=== PATIENT | male | born 1965 | race Caucasian/White ===

== ENCOUNTER 2016-12-24 22:08 | Emergency (ER) | payer MEDICAID ==
[2016-12-24 23:13] LABS: ABSOLUTE BASOPHILS # (AUTO) 0.1 10^3/uL (0.0-0.2); ABSOLUTE EOSINOPHILS # (AUTO) 0.4 10^3/uL (0.0-0.6); ABSOLUTE LYMPHOCYTES (AUTO) 2.7 10^3/uL (0.5-4.7); ABSOLUTE MONOCYTES (AUTO) 0.9 10^3/uL (0.1-1.4); ABSOLUTE NEUT (AUTO) 6.3 10^3/uL (1.7-8.2); BASOPHILS % (AUTO) 0.7 % (0-2); EOSINOPHILS % (AUTO) 3.8 % (0-6); HEMATOCRIT 41.9 % (37.9-51.0); HEMOGLOBIN 14.7 g/dL (13.5-17.0); HGB HCT DIFFERENCE 2.2; LYMPHOCYTES % (AUTO) 26.1 % (13-45); MEAN CORPUSCULAR HEMOGLOBIN 33.7 pg (27.0-33.4); MEAN CORPUSCULAR VOLUME 96 fl (80-97); MONOCYTES % (AUTO) 8.9 % (3-13); RED BLOOD COUNT 4.36 10^6/uL (4.35-5.55); RED CELL DISTRIBUTION WIDTH 13.1 % (11.5-14.0); SEGMENTED NEUTROPHILS % (AUTO) 60.5 % (42-78); WHITE BLOOD COUNT 10.4 10^3/uL (4.0-10.5)
[2016-12-24 23:22] LABS: APPEARANCE,URINE CLEAR; BILIRUBIN,URINE NEGATIVE (NEGATIVE); GLUCOSE, URINE NEGATIVE (NEGATIVE); KETONES,URINE NEGATIVE (NEGATIVE); LEUKOCYTE ESTERASE,URINE NEGATIVE (NEGATIVE); NITRITE,URINE NEGATIVE (NEGATIVE); PROTEIN,URINE NEGATIVE (NEGATIVE); URINE SPECIFIC GRAVITY 1.005; UROBILINOGEN,URINE NEGATIVE mg/dL (<2.0)
[2016-12-24 23:28] LABS: ALANINE AMINOTRANSFERASE 32 U/L (21-72); ALBUMIN 4.2 g/dL (3.5-5.0); ALKALINE PHOSPHATASE 65 U/L (38-126); ANION GAP 16 (5-19); ASPARTATE AMINO TRANSFERASE 26 U/L (17-59); BILIRUBIN,DIRECT 0.3 mg/dL (0.0-0.4); BILIRUBIN,TOTAL 0.3 mg/dL (0.2-1.3); BLOOD UREA NITROGEN 14 mg/dL (7-20); CALCIUM 9.3 mg/dL (8.4-10.2); CARBON DIOXIDE 19 mmol/L (22-30); CHLORIDE 105 mmol/L (98-107); CREATININE RESULT 0.84 mg/dL (0.52-1.25); GLUCOSE 88 mg/dL (75-110); POTASSIUM 4.8 mmol/L (3.6-5.0); SODIUM 139.9 mmol/L (137-145)
[2016-12-25] MEDS ORDERED: HYDROMORPHONE HCL INJ/PF 2 MG/ML AMPULE IV ONE (00:16)
--- NOTE | 2016-12-25 00:16 | ER Document Report ---
ED General - General Chief Complaint: Back Pain Stated Complaint: BACK PAIN Time Seen by Provider: 12/25/16 00:02 Mode of Arrival: Medic Information source: Patient Notes: A 51-year-old male with a history of hypertension who presents with sudden onset of sharp carrying back pain between his shoulder blades that occurred about 3 hours ago at rest. He denies any prior history of similar back pain. He states pain is made worse with deep breathing. No fevers or chills. TRAVEL OUTSIDE OF THE [place] IN LAST 30 DAYS: No - Related Data Allergies/Adverse Reactions: Coconut * [Coconut] Allergy (Verified 05/13/14 10:15) morphine Allergy (Verified 05/09/16 16:08) Past Medical History - Social History Smoking Status: Current Every Day Smoker Chew tobacco use (# tins/day): No Frequency of alcohol use: Social Drug Abuse: None Family History: Reviewed & Not Pertinent Patient has suicidal ideation: No Patient has homicidal ideation: No - Past Medical History Cardiac Medical History: Reports: Hx Hypertension - managed with 3medications Renal/ Medical History: Denies: Hx Peritoneal Dialysis Traumatic Medical History: Reports: Hx Fractures Past Surgical History: Reports: Hx Orthopedic Surgery - leg fx with plate placed , carpal tunnel surgery - Immunizations Hx Diphtheria, Pertussis, Tetanus Vaccination: Yes Review of Systems - Review of Systems Constitutional: No symptoms reported. denies: Chills, Fever EENT: No symptoms reported Cardiovascular: No symptoms reported. denies: Chest pain, Syncope Respiratory: See HPI Gastrointestinal: No symptoms reported Genitourinary: No symptoms reported Musculoskeletal: See HPI, Back pain Skin: No symptoms reported Hematologic/Lymphatic: No symptoms reported Neurological/Psychological: No symptoms reported Physical Exam - Vital signs Vitals: Temp Pulse Resp BP Pulse Ox 98.2 F 69 16 136/86 H 96 12/24/16 22:17 12/24/16 22:17 12/24/16 22:17 12/24/16 22:17 12/24/16 22:17 - Notes Notes: PHYSICAL EXAMINATION: GENERAL: Well-appearing, well-nourished and in mild distress secondary to pain HEAD: Atraumatic, normocephalic. EYES: Pupils equal round and reactive to light, extraocular movements intact, sclera anicteric, conjunctiva are normal. ENT: nares patent, oropharynx clear without exudates. Moist mucous membranes. NECK: Normal range of motion, supple without lymphadenopathy LUNGS: Breath sounds clear to auscultation bilaterally and equal. No wheezes rales or rhonchi. HEART: Regular rate and rhythm without murmurs ABDOMEN: Soft, nontender, normoactive bowel sounds. No guarding, no rebound. No masses appreciated. EXTREMITIES: Normal range of motion, no pitting or edema. NEUROLOGICAL: Cranial nerves grossly intact. No gross focal motor or sensory deficits appreciated PSYCH: Normal mood, normal affect. SKIN: Warm, Dry, normal turgor, no rashes or lesions noted. Course - Vital Signs Vital signs: Temp Pulse Resp BP Pulse Ox 98.2 F 69 14 140/80 H 96 12/24/16 22:17 12/24/16 22:17 12/25/16 03:01 12/25/16 03:01 12/25/16 03:01 - Laboratory Result Diagrams: 12/24/16 23:03 12/24/16 23:03 Laboratory results interpreted by me: 12/24/16 12/24/16 23:03 23:03 MCH 33.7 H Carbon Dioxide 19 L 12/25/16 03:33 troponin negative x2 - Diagnostic Test Radiology reviewed: Reports reviewed - CTA: no dissection, no PE. Spiculated lesion RML concerning for malignancy. Sclerotic lesion T6 - EKG Interpretation by Me Rate: Normal Rhythm: NSR Additional EKG results interpreted by me: 12/25/16 03:35 EKG at 00 21 demonstrates normal sinus rhythm with a rate of [address] segment elevation or depression Discharge - Discharge Clinical Impression: Mass of right lung Hypertension Qualifiers: Hypertension type: essential hypertension Qualified Code(s): I10 - Essential ( primary) hypertension Condition: Stable Disposition: HOME, SELF-CARE Additional Instructions: HIGH BLOOD PRESSURE REQUIRING TREATMENT: Your blood pressure is high. This is called "hypertension." If left untreated, high blood pressure greatly increases your risk of heart attack and stroke. Please don't ignore this problem. If you have blood pressure medicine but aren't using it regularly, start taking it again. Some simple things you can do to help are: Get some aerobic exercise for at least 20 minutes on a daily basis. (See your doctor before beginning any new exercise program.) Eat a low-fat diet. Lose excess weight. Avoid salty foods and avoid adding salt to any of the foods you eat. Avoid diet pills, decongestants, "energizing" herbs, and other medicines that elevate blood pressure. There are many different medicines that treat blood pressure. If your medication causes unpleasant side effects, call your doctor. There are others you can try. Treating hypertension is a life-long investment in your health. As discussed, your CT scan demonstrated a nodule in your right lung. This needs further evaluation and biopsy. Follow up with your PCP on Monday. You are encouraged to stop smoking FOLLOW-UP CARE: If you have been referred to a physician for follow-up care, call the physician s office for an appointment as you were instructed or within the next two days. If you experience worsening or a significant change in your symptoms, notify the physician immediately or return to the Emergency Department at any time for re-evaluation. Prescriptions: Hydrocodone/Acetaminophen [[place] 5-325 mg Tablet] 1 tab PO Q6H PRN #15 tablet PRN Reason: For Pain Forms: Smoking Cessation Education
--- NOTE | 2016-12-25 01:08 | RADIOLOGY REPORT (SQ) ---
EXAM DESCRIPTION: CHEST SINGLE VIEW COMPLETED DATE/TIME: 12/25/2016 12:33 am REASON FOR STUDY: severe upper back pain, pleuritic COMPARISON: None. EXAM PARAMETERS: NUMBER OF VIEWS: One view. TECHNIQUE: Single frontal radiographic view of the chest acquired. RADIATION DOSE: NA LIMITATIONS: None. FINDINGS: LUNGS AND PLEURA: Nodular ground-glass opacity at the right lung base. No pleural effusio n or pneumothorax. MEDIASTINUM AND HILAR STRUCTURES: No masses. Contour normal. HEART AND VASCULAR STRUCTURES: Heart normal in size. No overt vascular congestion. BONES: No acute findings. HARDWARE: None in the chest. IMPRESSION: Nodular ground-glass opacity at the right lung base. CT thorax recommended for further evaluation. TECHNICAL DOCUMENTATION: JOB ID: [id number]
[2016-12-25 01:21] LABS: ALCOHOL 128 mg/dL (NONE DETECTED); CREATINE KINASE 161 U/L (55-170)
[2016-12-25 01:32] LABS: PROTHROMBIN TIME 11.9 SEC (11.4-15.4)
[2016-12-25 01:40] LABS: CREATINE KINASE MB 1.48 ng/mL (<4.55)
[2016-12-25 01:41] LABS: TROPONIN I < 0.012 ng/mL
[2016-12-25 01:42] LABS: D-DIMER 0.32 ug/mL (0.00-0.50)
--- NOTE | 2016-12-25 02:27 | RADIOLOGY REPORT (SQ) ---
EXAM DESCRIPTION: CTA CHEST COMPLETED DATE/TIME: 12/25/2016 2:06 am REASON FOR STUDY: severe upper back pain, abnormal cxr COMPARISON: Chest x-ray 12/25/2016. TECHNIQUE: CT scan of the chest performed using helical scanning technique with dynamic intravenous contrast injection. Images reviewed with lung, soft tissue and bone windows. Reconstructed coronal and sagittal MPR images reviewed. Additional 3 dimensional post-processing performed to develop Maximal Intensity Projection images (NE P). All images stored on PACS. All CT scanners at this facility use dose modulation, iterative reconstruction, and/or weight based d osing when appropriate to reduce radiation dose to as low as reasonably achievable (ALARA). [facility]: Dose Right [facility]: CareDose [facility]: Dose Right [facility]: Teradose 4D [facility]: Blizuu CONTRAST TYPE AND DOSE: 100 mL Isovue 370- low osmolar. RENAL FUNCTION: Creatinine 0.84 RADIATION DOSE: 29.04 mGy. LIMITATIONS: None. FINDINGS: LUNGS AND PLEURA: 2.7 x 2.2 cm spiculated nodule in the right middle lobe extending to the pleura. Mild bibasilar atelectasis. No pleural effusion or pneumothorax. AORTA AND GREAT VESSELS: No thoracic aortic aneurysm or dissection. HEART: No pericardial effusion. PULMONARY ARTERIES: No emboli visualized in the main pulmonary arteries or the segmental branches. HILAR AND MEDIASTINAL STRUCTURES: No pathologically enlarged lymph nodes at the mediastinum or hilar regions. Mildly enlarged lymph nodes are seen at the bilateral axillary regions measuring up to 12 m m in short axis. HARDWARE: None in the chest. UPPER ABDOMEN: No significant findings. Limited exam. THYROID AND OTHER SOFT TISSUES: No masses. No adenopathy. BONES: Multilevel degenerative changes in the spine. 6 mm sclerotic area at the left side of T6 vert ebral body. 3D MIPS: Confirm above findings. IMPRESSION: No pulmonary emboli. Mild bibasilar atelectasis. Spiculated nodule in the right middle lobe extending to the pleura, worrisome for malignancy. Correl ation with PET/CT and tissue sampling recommended. Mild bilateral axillary adenopathy. This can be also better evaluated on PET/CT. 6 mm sclerotic lesion at the T6 vertebral body, indeterminate. TECHNICAL DOCUMENTATION: JOB ID: [id number] [place]- Quality ID # 436: Final reports with documentation of one or more dose reduction techniques (e.g., Au tomated exposure control, adjustment of the mA and/or kV according to patient size, use of iterative reconstruction technique) 2010 [employer]- All Rights Reserved
[2016-12-25 04:21] VITALS: BP 162/89
--- NOTE | 2016-12-25 09:21 | EKG REPORT ---
SEVERITY:- NORMAL ECG - SINUS RHYTHM : Confirmed by: David Hunter 25-Dec-2016 09:20:32
== END 2016-12-25 04:25 | disposition home or self-care (01) ==
LOC: ER 22:08
DX: R91.1 Solitary pulmonary nodule (principal); I10 Essential (primary) hypertension; M48.8X4 Other specified spondylopathies, thoracic region; M54.89 Other dorsalgia; F17.200 Nicotine dependence, unspecified, uncomplicated; Z91.018 Allergy to other foods; Z88.5 Allergy status to narcotic agent
CPT/HCPCS: 93005; 99284; 96374; 36415; 82553; 80307; 82550; 85025; 85610; 80053; 81001; 84484; 85379; 71010; 71275; 93010; J1170

== ENCOUNTER → 2017-02-03 | Outpatient (CLI) | payer MEDICAID ==
--- NOTE | 2017-02-03 10:37 | RADIOLOGY REPORT (SQ) ---
EXAM DESCRIPTION: CHEST SINGLE VIEW COMPLETED DATE/TIME: 02/03/2017 10:24 am REASON FOR STUDY: PNEUMOTHORAX COMPARISON: 12/25/2016 EXAM PARAMETERS: NUMBER OF VIEWS: One view. TECHNIQUE: Single frontal radiographic view of the chest acquired. RADIATION DOSE: NA LIMITATIONS: None. FINDINGS: LUNGS AND PLEURA: There is an approximately 20% pneumothorax on the right. There is a vani ewhat ill-defined opacity in the medial right base. No pleural effusion is present. MEDIASTINUM AND HILAR STRUCTURES: No masses. Contour normal. HEART AND VASCULAR STRUCTURES: Heart normal in size. Normal vasculature. BONES: No acute findings. HARDWARE: A pigtail catheter is present in the right hemithorax. OTHER: No other significant finding. IMPRESSION: 1. Right pneumothorax. 2. Right lower lobe pulmonary nodule. TECHNICAL DOCUMENTATION: JOB ID: [id number]
--- NOTE | 2017-02-03 11:47 | RADIOLOGY REPORT (SQ) ---
EXAM DESCRIPTION: CHEST SINGLE VIEW COMPLETED DATE/TIME: 02/03/2017 11:30 am REASON FOR STUDY: new heimlich valve placement COMPARISON: Earlier the same day. The regional film today was obtained at 1015 hours. The patient had the pneumothorax aspirated and a new Heimlich valve placed. A 2nd film was obtained which accord ing to the RA was obtained at 1030 hours. Time stamp on the film still says 1015 hours. EXAM PARAMETERS: NUMBER OF VIEWS: One view. TECHNIQUE: Single frontal radiographic view of the chest acquired. RADIATION DOSE: NA LIMITATIONS: None. FINDINGS: LUNGS AND PLEURA: Small right apical pneumothorax remains. This is significantly improved from the earlier film. MEDIASTINUM AND HILAR STRUCTURES: No masses. Contour normal. HEART AND VASCULAR STRUCTURES: Heart normal in size. Normal vasculature. BONES: No acute findings. HARDWARE: None in the chest. OTHER: No other significant finding. IMPRESSION: Persistent small right apical pneumothorax improved from the film obtained at 1015 hours . The current film was obtained at 1030 hours although the time stamp states 1015 hours. TECHNICAL DOCUMENTATION: JOB ID: [id number]
--- NOTE | 2017-02-03 12:12 | RADIOLOGY REPORT (SQ) ---
EXAM DESCRIPTION: CHEST SINGLE VIEW COMPLETED DATE/TIME: 02/03/2017 12:03 pm REASON FOR STUDY: POST NEW HEIMLICH VALVE PLACEMENT COMPARISON: Earlier the same day. EXAM PARAMETERS: NUMBER OF VIEWS: One view. TECHNIQUE: Single frontal radiographic view of the chest acquired. RADIATION DOSE: NA LIMITATIONS: None. FINDINGS: LUNGS AND PLEURA: Small right apical pneumothorax remains. MEDIASTINUM AND HILAR STRUCTURES: No masses. Contour normal. HEART AND VASCULAR STRUCTURES: Heart normal in size. Normal vasculature. BONES: No acute findings. HARDWARE: None in the chest. OTHER: No other significant finding. IMPRESSION: No interval change in the small right apical pneumothorax. TECHNICAL DOCUMENTATION: JOB ID: [id number]
== END ==
LOC: RAD 09:59
PROVIDERS: ATTEND Nuclear Medicine
DX: J93.9 Pneumothorax, unspecified (principal)
CPT/HCPCS: 71010

== ENCOUNTER → 2017-02-06 | Outpatient (CLI) | payer MEDICAID ==
--- NOTE | 2017-02-06 15:12 | RADIOLOGY REPORT (SQ) ---
EXAM DESCRIPTION: CHEST SINGLE VIEW COMPLETED DATE/TIME: 02/06/2017 2:58 pm REASON FOR STUDY: POST CHEST TUBE REMOVAL COMPARISON: Multiple chest films from 02/03/2017 EXAM PARAMETERS: NUMBER OF VIEWS: One view. TECHNIQUE: Single frontal radiographic view of the chest acquired. RADIATION DOSE: NA LIMITATIONS: None. FINDINGS: LUNGS AND PLEURA: The right-sided Heimlich valve and 5 [place] chest tube has been removed. No right pneumothorax. Right middle lobe nodule unchanged, along the anterior right 6th rib. No pleural effusions. No left pneumothorax. MEDIASTINUM AND HILAR STRUCTURES: No masses. Contour normal. HEART AND VASCULAR STRUCTURES: Heart normal in size. Normal vasculature. BONES: No acute findings. HARDWARE: None in the chest. OTHER: No other significant finding. IMPRESSION: No pneumothorax post right chest tube removal. Stable nodule medial right middle lobe, superimposed on the anterior 6th rib. TECHNICAL DOCUMENTATION: JOB ID: [id number]
--- NOTE | 2017-02-06 15:22 | RADIOLOGY REPORT (SQ) ---
EXAM DESCRIPTION: CHEST SINGLE VIEW COMPLETED DATE/TIME: 02/06/2017 2:46 pm REASON FOR STUDY: S/P PNEUMOTHORAX FOR REMOVAL OF CHEST TUBE COMPARISON: None. EXAM PARAMETERS: NUMBER OF VIEWS: One view. TECHNIQUE: Single frontal radiographic view of the chest acquired. RADIATION DOSE: NA LIMITATIONS: None. FINDINGS: LUNGS AND PLEURA: Previously described small right apical pneumothorax has resolved. No i nfiltrates. No effusions. MEDIASTINUM AND HILAR STRUCTURES: No masses. Contour normal. HEART AND VASCULAR STRUCTURES: Heart normal in size. Normal vasculature. BONES: No acute findings. HARDWARE: None in the chest. OTHER: No other significant finding. IMPRESSION: Previously described right apical pneumothorax has resolved. Lungs currently clear. Tu be remains unchanged in position TECHNICAL DOCUMENTATION: JOB ID: [id number]
== END ==
LOC: RAD 14:04
PROVIDERS: ATTEND Nuclear Medicine
DX: R91.1 Solitary pulmonary nodule (principal)
CPT/HCPCS: 71010

== ENCOUNTER → 2017-09-01 | Outpatient (CLI) | payer MEDICAID ==
--- NOTE | 2017-09-01 14:47 | RADIOLOGY REPORT (SQ) ---
EXAM DESCRIPTION: CT CHEST WITHOUT COMPLETED DATE/TIME: 09/01/2017 1:35 pm REASON FOR STUDY: PULMONARY INFILTRATE R91.8 OTHER NONSPECIFIC ABNORMAL FINDING OF LUNG FIELD COMPARISON: 12/25/2016 TECHNIQUE: CT scan performed of the chest without intravenous contrast. Images reviewed with lung, soft tissue and bone windows. Reconstructed coronal and sagittal MPR images reviewed. All images st ored on PACS. All CT scanners at this facility use dose modulation, iterative reconstruction, and/or weight based d osing when appropriate to reduce radiation dose to as low as reasonably achievable (ALARA). [facility]: Dose Right [facility]: CareDose [facility]: Dose Right [facility]: Teradose 4D [facility]: Smart Page2Images RADIATION DOSE: CT Rad equipment meets quality standard of care and radiation dose reduction techniq ues were employed. CTDIvol: 6.4 mGy. DLP: 261 mGy-cm. mGy. LIMITATIONS: No technical limitations. FINDINGS: LUNGS AND PLEURA: There has been interval right middle lobectomy since the previous exam. Post radiation changes are present in the subpleural right upper lobe anterior and laterally in its lower aspect. No pulmonary mass. No consolidation or pleural effusion. HILAR AND MEDIASTINAL STRUCTURES: No identified masses or abnormal nodes. No obvious aneurysm. HEART AND VASCULAR STRUCTURES: No aneurysm. No pericardial effusion. UPPER ABDOMEN: No significant findings. Limited exam. THYROID AND OTHER SOFT TISSUES: No masses. No adenopathy. BONES: No acute finding. HARDWARE: None in the chest. OTHER: Similar bilateral axillary lymph nodes. IMPRESSION: There has been interval right middle lobectomy since the previous exam. Post radiation changes are present in the subpleural right upper lobe anterior and laterally in its lower aspect. N o pulmonary mass. No consolidation or pleural effusion. TECHNICAL DOCUMENTATION: JOB ID: [id number] [place]-72 Quality ID # 436: Final reports with documentation of one or more dose reduction techniques (e.g., Au tomated exposure control, adjustment of the mA and/or kV according to patient size, use of iterative reconstruction technique) 2010 [employer]- All Rights Reserved
== END ==
LOC: RAD 13:00
PROVIDERS: ATTEND Internal Medicine Critical Care Medicine
DX: R91.8 Other nonspecific abnormal finding of lung field (principal)
CPT/HCPCS: 71250

== ENCOUNTER → 2018-03-08 | Outpatient (CLI) | payer MEDICAID ==
--- NOTE | 2018-03-08 16:02 | RADIOLOGY REPORT (SQ) ---
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 Images reviewed with lung, soft tissue and bone windows. Reconstructed coronal and sagittal MPR images reviewed. All images st ored on PACS. All CT scanners at this facility use dose modulation, iterative reconstruction, and/or weight based d osing when appropriate to reduce radiation dose to as low as reasonably achievable (ALARA). [facility]: Dose Right [facility]: CareDose [facility]: Dose Right [facility]: Teradose 4D [facility]: [place] RADIATION DOSE: CT Rad equipment meets quality standard of care and radiation dose reduction techniq ues were employed. CTDIvol: 6.8 mGy. DLP: 281 mGy-cm. mGy. LIMITATIONS: No technical limitations. FINDINGS: LUNGS AND PLEURA: Post old right thoracotomy, with lung stas post right middle lobectom y. There is bandlike scarring in the periphery of the upper lobe adjacent to the thoracotomy defect. No recurrent nodule is identified. No acute infiltrates. No pleural effusion. No pneumothorax. HILAR AND MEDIASTINAL STRUCTURES: No identified masses or abnormal nodes. No obvious aneurysm. HEART AND VASCULAR STRUCTURES: No aneurysm. No pericardial effusion. UPPER ABDOMEN: No significant findings. Limited exam. THYROID AND OTHER SOFT TISSUES: No masses. No adenopathy. BONES: Old right thoracotomy defect between the lateral 4th and 5th rays. Old right 4th and 6th late ral rib fractures HARDWARE: None in the chest. OTHER: No other significant findings. IMPRESSION: Post right middle lobectomy. No CT evidence of recurrent tumor TECHNICAL DOCUMENTATION: JOB ID: [id number] Quality ID # [id number]: Final reports with documentation of one or more dose reduction techniques (e.g., Au tomated exposure control, adjustment of the mA and/or kV according to patient size, use of iterative reconstruction technique) 2010 [employer]- All Rights Reserved Reading location - IP/workstation name: [id number]
== END ==
LOC: RAD 12:51
DX: C34.90 Malignant neoplasm of unspecified part of unspecified bronchus or lung (principal)
CPT/HCPCS: 71250

== ENCOUNTER 2019-04-30 05:55 | Emergency (ER) | payer SELFPAY ==
[2019-04-30] MEDS ORDERED: FENTANYL CITRATE INJ/PF 100 MCG/2 ML AMPUL IV ONE (06:04)
--- NOTE | 2019-04-30 06:15 | ER Document Report ---
ED General - General Chief Complaint: Back Pain Stated Complaint: BACK PAIN Time Seen by Provider: 04/30/19 06:04 Primary Care Provider: HUGO BLACKWOOD MD [NO LOCAL MD] - Follow up as needed TRAVEL OUTSIDE OF THE [place] IN LAST 30 DAYS: No - HPI Notes: Patient is a 53-year-old male presents emergency department for evaluation of chest pain with radiation to the back. He states the chest pain started yesterday, while doing nothing in particular. He describes it as a pressure, rates it a 10 out of 10. This morning he states he woke with pain that radiated into his back, same in nature as the chest pain but much worse. He states the pain is been taking his breath away, making him slightly nauseated. He states he is never had pain like this in the past. He does have a history of high blood pressure, is supposed to be on lisinopril, but states he cannot afford it. - Related Data Allergies/Adverse Reactions: Coconut * [Coconut] Allergy (Verified 05/13/14 10:15) morphine Allergy (Verified 05/09/16 16:08) Past Medical History - General Information source: Patient - Social History Smoking Status: Current Every Day Smoker Family History: Reviewed & Not Pertinent - Past Medical History Cardiac Medical History: Reports: Hx Hypertension - managed with 3medications - not currently taking Renal/ Medical History: Denies: Hx Peritoneal Dialysis Malignancy Medical History: Reports Hx Lung Cancer - Status post resection, no chemotherapy Traumatic Medical History: Reports: Hx Fractures Past Surgical History: Reports: Hx Orthopedic Surgery - leg fx with plate placed, carpal tunnel surgery - Immunizations Hx Diphtheria, Pertussis, Tetanus Vaccination: Yes Review of Systems - Review of Systems Constitutional: No symptoms reported EENT: No symptoms reported Cardiovascular: See HPI Respiratory: See HPI Gastrointestinal: See HPI Genitourinary: No symptoms reported Musculoskeletal: No symptoms reported Skin: No symptoms reported Neurological/Psychological: No symptoms reported Physical Exam - Vital signs Vitals: Pulse Ox 98 04/30/19 06:00 - Notes Notes: Is a 53-year-old male who appears his stated age, and a significant amount of distress. He is moaning, rolling around on the bed. Vital signs reviewed, please refer to chart. Head is normocephalic, atraumatic. Pupils equal round, reactive to light. Neck is supple without meningismus. Heart is regular rate and rhythm. Lungs are clear to auscultation bilaterally. Abdomen is soft, nontender, normoactive bowel sounds throughout. Extremities without cyanosis, clubbing. Posterior calves are nontender. Peripheral pulses are equal. Skin is warm and dry. Patient is awake, alert, neurological exam is nonfocal. Course - Re-evaluation Re-evalutation: 04/30/19 12:31 Patient was under the emergency department for evaluation. He complained of chest pain with radiation to the back. Based on his level of discomfort initially, I was concerned about the possibility of a dissection. CT angiogram of the chest, abdomen, pelvis were ordered. Findings on that were concerning for possible recurrence of his lung cancer. Upon returning from CT scan, it was noted the patient's troponin was positive at 1.74. Sublingual nitroglycerin was instituted with did not help his pain at all. He remained hypertensive. Patient was administered Dilaudid which relieved his pain entirely. He was sta rted on a nitroglycerin drip given his positive troponin and elevated blood pressure. This was titrated up. At 30 mics, the patient's blood pressure was still poorly controlled. I did titrate up to 40, his blood pressures became more reasonable. Given his positive troponin, age, poorly controlled blood pressure, I spoke with our hand sander, Dr. Asher. He believes that the patient would be best cared for in a tertiary center. The patient requested that this be [facility]. I spoke with Dr. Fantasma Lamb, who accepted the patient for further care. Patient remained chest pain-free, he did start complaining of lower back pain again. He was medicated further with 1 mg of Dilaudid, and will be transferred to [facility] for further care. - Vital Signs Vital signs: Temp Pulse Resp BP Pulse Ox 98.7 F 121 H 16 154/90 H 96 04/30/19 07:46 04/30/19 07:07 04/30/19 11:15 04/30/19 11:15 04/30/19 11:15 - Laboratory Result Diagrams: 04/30/19 05:40 04/30/19 05:40 Laboratory results interpreted by me: 04/30/19 04/30/19 04/30/19 05:40 05:40 05:40 WBC 13.2 H RBC 3.68 L Hgb 11.7 L Hct 34.6 L RDW 14.5 H Plt Count 566 H Absolute Neuts (auto) 10.4 H Seg Neutrophils % 78.7 H Sodium 135.3 L Alkaline Phosphatase 150 H CK-MB (CK-2) 10.80 H Albumin 3.3 L - EKG Interpretation by Me Additional EKG results interpreted by me: 04/30/19 06:15 Sinus tachycardia with a rate of 107 bpm. Normal axis. Nonspecific ST changes, but no acute changes concerning for infarction. No significant change in compared to prior study of December 25, 2016 Critical Care Note - Critical Care Note Total time excluding time spent on procedures (mins): 50 Discharge - Discharge Clinical Impression: NSTEMI (non-ST elevated myocardial infarction) Condition: Fair Disposition: [facility] [place] Referrals: HUGO BLACKWOOD MD [NO LOCAL MD] - Follow up as needed
[2019-04-30 06:24] LABS: ABSOLUTE BASOPHILS # (AUTO) 0.1 10^3/uL (0.0-0.2); ABSOLUTE EOSINOPHILS # (AUTO) 0.1 10^3/uL (0.0-0.6); ABSOLUTE LYMPHOCYTES (AUTO) 1.8 10^3/uL (0.5-4.7); ABSOLUTE MONOCYTES (AUTO) 0.9 10^3/uL (0.1-1.4); ABSOLUTE NEUT (AUTO) 10.4 10^3/uL (1.7-8.2); BASOPHILS % (AUTO) 0.4 % (0-2); EOSINOPHILS % (AUTO) 0.8 % (0-6); HEMATOCRIT 34.6 % (37.9-51.0); HEMOGLOBIN 11.7 g/dL (13.5-17.0); INTERNATIONAL RATION (INR) 1.06; LYMPHOCYTES % (AUTO) 13.6 % (13-45); MEAN CORPUSCULAR HEMOGLOBIN 31.7 pg (27.0-33.4); MEAN CORPUSCULAR HGB CONC 33.8 g/dL (32.0-36.0); MEAN CORPUSCULAR VOLUME 94 fl (80-97); MONOCYTES % (AUTO) 6.5 % (3-13); PLATELET COUNT 566 10^3/uL (150-450); PROTHROMBIN TIME 13.8 SEC (11.4-15.4); RED BLOOD COUNT 3.68 10^6/uL (4.35-5.55); RED CELL DISTRIBUTION WIDTH 14.5 % (11.5-14.0); SEGMENTED NEUTROPHILS % (AUTO) 78.7 % (42-78); TOTAL CELLS COUNTED % (AUTO) 100 %; WHITE BLOOD COUNT 13.2 10^3/uL (4.0-10.5)
[2019-04-30 06:31] LABS: ALBUMIN 3.3 g/dL (3.5-5.0); ALKALINE PHOSPHATASE 150 U/L (38-126); ANION GAP 7 (5-19); ASPARTATE AMINO TRANSFERASE 50 U/L (17-59); BILIRUBIN,DIRECT 0.2 mg/dL (0.0-0.4); BILIRUBIN,TOTAL 0.7 mg/dL (0.2-1.3); BLOOD UREA NITROGEN 7 mg/dL (7-20); CALCIUM 8.7 mg/dL (8.4-10.2); CARBON DIOXIDE 29 mmol/L (22-30); CHLORIDE 99 mmol/L (98-107); CREATINE KINASE 158 U/L (55-170); GLUCOSE 105 mg/dL (75-110); POTASSIUM 4.4 mmol/L (3.6-5.0); TOTAL PROTEIN 6.8 g/dL (6.3-8.2)
[2019-04-30 06:42] LABS: CREATINE KINASE MB 10.8 ng/mL (<4.55)
[2019-04-30 06:49] LABS: TROPONIN I 1.74 ng/mL
[2019-04-30] MEDS ORDERED: ASPIRIN 81 MG TABLET, CHEWABLE PO ONE (06:52)
[2019-04-30] MEDS: NITROGLYCERIN 0.4 MG/TAB 25 TAB/BOTTLE SL PRN ×2 (06:59→07:05)
[2019-04-30] MEDS ORDERED: NITROGLYCERIN/D5W 50 MG/250 ML RTUINJ IV PRN (07:07)
[2019-04-30] MEDS ORDERED: HYDROMORPHONE HCL INJ/PF 2 MG/ML AMPULE IV ONE ×3 (07:07→12:34)
--- NOTE | 2019-04-30 07:37 | RADIOLOGY REPORT (SQ) ---
EXAM DESCRIPTION: CT ABDOMEN PELVIS WITHOUT THEN WITH IV CONTRAST, CT CHEST ANGIOGRAPHY WITHOUT THEN WITH IV CONTRAST COMPLETED DATE/TME: 04/30/2019 06:04 CLINICAL HISTORY: 53 years Male, chest pain into back Comparison: 03/08/18. 09/01/2017. Technique: IV contrast. Coronal and sagittal reformat. 3d reconstruction. This exam was performed according to our departmental dose-optimization program, which includes automated exposure control, adjustment of the mA and/or kV according to patient size and/or use of iterative reconstruction technique.[facility]: Dose Right [facility]: CareDose [facility]: Dose Right [facility]: Teradose 4D [facility]: [employer] LIMITATIONS: None Findings: Moderately extensive patchy and groundglass airspace opacity and interstitial markings of the right lung. 1.8 cm pneumatocele of the right mid lung peripherally, image 71 of series 3. Small to moderate right pleural effusion. Moderate mediastinal lymphadenopathy. 1.1 cm low-attenuation lesion of the left hepatic lobe, image 121 of series 3. Right fourth lateral rib deformity indicative of prior injury. Moderate rightward cardiac shift and consistent with previously described history of partial right lung resection. Small free pelvic fluid. Mild splenomegaly. CTA:No evidence of aortic aneurysm, dissection, or occlusion. No evidence of pulmonary embolus. Patent major vessels of the abdomen and pelvis including the celiac, mesenteric, renal , and iliac arteries. No vasculitides. No hemorrhage/hematoma. Vascular system appears otherwise unremarkable. Inferior neck, axillae, airway, heart, gallbladder, pancreas, adrenals, renal system, gastrointestinal tract, pelvic organs, lymphatics, vasculature, and musculoskeleton appear otherwise unremarkable. Impression: 1. New moderate extensive mixed airspace and interstitial opacities of the right lung including a 1.8 cm pneumatocele. [id number] right pleural effusion. Moderate mediastinal lymphadenopathy. 1.1 cm low-attenuation lesion of the left hepatic lobe. Differential etiologies include infectious, inflammatory, and neoplastic processes. Cannot exclude recurrent malignancy/metastasis in this patient with history of prior lung malignancy and right middle lobectomy. Consider a non-contrast Chest CT at 3 months, a PET/CT, or tissue sampling alongside clinically warranted therapy. 2. Mild splenomegaly. 3. Small free pelvic fluid. 4. No acute CTA findings of the chest, abdomen, or pelvis. Atherosclerotic vascular disease.
[2019-04-30] MEDS ORDERED: ENOXAPARIN SODIUM INJ 80 MG/0.8 ML DISP.SYRIN SUBCUT ONE (09:53)
[2019-04-30] MEDS ORDERED: METOPROLOL SUCCINATE 25 MG TAB.SR.24H PO ONE (09:54)
--- NOTE | 2019-04-30 11:01 | RADIOLOGY REPORT (SQ) ---
EXAM DESCRIPTION: FOOT LEFT COMPLETE COMPLETED DATE/TIME: 04/30/2019 10:27 am REASON FOR STUDY: pain left small toe COMPARISON: AP, lateral, oblique views of the left foot from 03/04/2014. NUMBER OF VIEWS: Three views. TECHNIQUE: AP, lateral and oblique radiographic images acquired of the left foot. LIMITATIONS: None. FINDINGS: MINERALIZATION: Normal. BONES: No acute fracture or dislocation. No osseous lesion. JOINTS: Degeneration of the 1st MTP joint and scattered IP joints. SOFT TISSUES: No soft tissue swelling, radiopaque foreign body, or subcutaneous emphysema. OTHER: Enthesophytes at the calcaneal insertion of the plantar fascia and Achilles tendon. IMPRESSION: No acute osseous abnormality of the left foot. TECHNICAL DOCUMENTATION: JOB ID: [id number] [email or web address]- All Rights Reserved Reading location - IP/workstation name: [email or web address]
[2019-04-30 11:18] VITALS: BP 154/90
[2019-04-30] MEDS ORDERED: HYDROMORPHONE HCL INJ/PF 2 MG/ML AMPULE ONE (12:32)
--- NOTE | 2019-05-01 07:49 | EKG REPORT ---
SEVERITY:- OTHERWISE NORMAL ECG - SINUS TACHYCARDIA ST ELEV, PROBABLE NORMAL EARLY REPOL PATTERN : Confirmed by: Nelson Rawls MD 01-May-2019 07:48:32
== END 2019-04-30 12:44 | disposition short-term general hospital (02) ==
LOC: ER 05:55
DX: I21.4 Non-ST elevation (NSTEMI) myocardial infarction (principal); I10 Essential (primary) hypertension; T46.4X6A Underdosing of angiotensin-converting-enzyme inhibitors, initial encounter; Z91.120 Patient's intentional underdosing of medication regimen due to financial hardship; Z91.14 Patient's other noncompliance with medication regimen; R07.89 Other chest pain; R00.0 Tachycardia, unspecified; M54.5 Low back pain; R11.0 Nausea; F17.200 Nicotine dependence, unspecified, uncomplicated; Z85.118 Personal history of other malignant neoplasm of bronchus and lung; Z91.018 Allergy to other foods; Z88.5 Allergy status to narcotic agent
CPT/HCPCS: 93005; 36415; 82553; 82550; 85025; 85610; 80053; 84484; 73630; 71275; 74174; 93010; J3010; J1170; J3490; J1650; 96365; 96366; 96375; 96376; 99291

== ENCOUNTER 2019-12-13 16:02 | Emergency (ER) | payer SELFPAY ==
[2019-12-13 16:06] VITALS: BP 144/82
--- NOTE | 2019-12-13 16:11 | ER Document Report ---
ED Medical Screen (RME) - General Chief Complaint: Abscess Stated Complaint: INSECT BITE Time Seen by Provider: 12/13/19 16:05 Primary Care Provider: MARCO ANTONIO LONGORIA MD [Primary Care Provider] - Follow up as needed Mode of Arrival: Ambulatory Information source: Patient Notes: 54-year-old male presents emergency department with abscess to right upper abdomen/ ribs next week. 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 Denies history of MRSA. Reports his girlfriend applied Epson salt and did try to squeeze it. Very little drainage. He denies fever vomiting diarrhea. Patient reports the area hurts more when he leans on it or stretches. Patient was offered pain medication but declined. I have greeted and performed a rapid initial assessment of this patient. A comprehensive ED assessment and evaluation of the patient, analysis of test results and completion of the medical decision making process will be conducted by additional ED providers. TRAVEL OUTSIDE OF THE [place] IN LAST 30 DAYS: No - Related Data Allergies/Adverse Reactions: Coconut * [Coconut] Allergy (Verified 05/13/14 10:15) morphine Allergy (Verified 05/09/16 16:08) Home Medications: Lisinopril. Baby aspirin Past Medical History - Social History Frequency of alcohol use: Heavy Drug Abuse: None - Past Medical History Cardiac Medical History: Reports: Hx Hypertension - managed with 3medications - not currently taking Renal/ Medical History: Denies: Hx Peritoneal Dialysis Malignancy Medical History: Reports Hx Lung Cancer - Status post resection, no chemotherapy Traumatic Medical History: Reports: Hx Fractures Past Surgical History: Reports: Hx Orthopedic Surgery - leg fx with plate placed, carpal tunnel surgery - Immunizations Hx Diphtheria, Pertussis, Tetanus Vaccination: Yes Physical Exam - Vital signs Vitals: Temp Pulse Resp BP Pulse Ox 98.8 F 82 18 144/82 H 97 12/13/19 16:05 12/13/19 16:05 12/13/19 16:05 12/13/19 16:05 12/13/19 16:05 Course - Vital Signs Vital signs: Temp Pulse Resp BP Pulse Ox 98.8 F 82 18 144/82 H 97 12/13/19 16:06 12/13/19 16:05 12/13/19 16:05 12/13/19 16:05 12/13/19 16:05 Doctor's Discharge - Discharge Referrals: MARCO ANTONIO LONGORIA MD [Primary Care Provider] - Follow up as needed
== END 2019-12-13 17:40 | disposition left against medical advice (07) ==
LOC: ER 16:02
DX: Z53.29 Procedure and treatment not carried out because of patient's decision for other reasons (principal); L02.213 Cutaneous abscess of chest wall; Z88.8 Allergy status to other drugs, medicaments and biological substances; Z79.899 Other long term (current) drug therapy; I10 Essential (primary) hypertension
CPT/HCPCS: 99281